=== PATIENT | male | born 1980 | race Caucasian/White ===

== ENCOUNTER 2017-01-12 18:50 | Emergency (ER) | payer OTHER ==
[~2017-01-12] VITALS: Ht 177.8 cm; Wt 79.4 kg
[2017-01-12 19:22] LABS: ABSOLUTE BASOPHIL COUNT 0.1 /CUMM (0.0-0.2); ABSOLUTE EOSINOPHIL COUNT 0.2 /CUMM (0.0-0.7); ABSOLUTE GRANULOCYTE CT 5.2 /CUMM (1.4-6.5); ABSOLUTE LYMPH COUNT 2.6 /CUMM (1.2-3.4); ABSOLUTE MONOCYTE COUNT 0.8 /CUMM (0.10-0.60); BASOPHIL % 0.6 % (0.0-2.0); EOSINOPHIL % 2.2 % (0-5); GRANULOCYTE % 58.6 % (42.2-75.2); MEAN CORPUSCULAR HGB 30.4 PG (27.0-31.0); MEAN CORPUSCULAR HGB CONC 33.5 G/DL (33.0-37.0); MEAN CORPUSCULAR VOLUME 90.6 FL (80.0-94.0); MEAN PLATELET VOLUME 8.2 FL (7.4-10.4); PLATELET COUNT 283 /CUMM (130-400); RBC DISTRIBUTION WIDTH 13.6 % (11.5-14.5); RED BLOOD CELL CT 4.97 /CUMM (4.70-6.10); WHITE BLOOD CELL COUNT 8.8 /CUMM (4.8-10.8)
--- NOTE | 2017-01-12 20:04 | ED CARDIAC/CP/PALPITATIONS ---
History of Present Illness General Chief Complaint: Chest Pain Stated Complaint: CP, L ARM NUMBNESS Source: patient, family Exam Limitations: no limitations Vital Signs & Intake/Output Vital Signs & Intake/Output Vital Signs Date Time Temp Pulse Resp B/P B/P Pulse O2 O2 Flow FiO2 Mean Ox Delivery Rate 01/13 2052 98.1 75 18 149/79 98 Room Air 01/12 1901 97.9 79 16 157/81 98 Room Air Allergies Uncoded Allergies: ENVIRONMENTAL ALLERGIES (Severe, SNEEZING 06/20/12) Triage Note: PT STATES HE IS HAVING CHEST PAIN FOR THE PAST WEEK AND HIS FINGERS ON HIS LEFT ARM ARE NUMB. PT STATES CONSTANT PAIN AND NUMBNESS DENIES DIAPHORESIS OR SOB. Triage Nurses Notes Reviewed? yes HPI: Patient presents with pain in his left shoulder. The past 2 weeks. The pain is constant. Pain increases with abduction of his arm. The pain occasionally radiates into his chest. When it does radiate into his chest lasts anywhere from a few minutes stopped all day. There is no shortness of breath. No diaphoresis. The pain is aching and throbbing in nature. The pain also radiates down his arm and into his fingers. That radiation is constant. There is no known injury. Patient states that he does sleep on his left side time. Past History Travel History Traveled to [place] past 21 day No Medical History Any Pertinent Medical History? see below for history Respiratory: asthma Surgical History Surgical History: non-contributory Psychosocial History What is your primary language Mosotho Tobacco Use: Quit <30 days ago ETOH Use: occasional use Illicit Drug Use: denies illicit drug use Family History Hx Contributory? No Review of Systems Review of Systems Constitutional: Reports: no symptoms. EENTM: Reports: no symptoms. Respiratory: Reports: no symptoms. Cardiovascular: Reports: see HPI, chest pain. GI: Reports: no symptoms. Genitourinary: Reports: no symptoms. Musculoskeletal: Reports: see HPI, joint pain. Skin: Reports: no symptoms. Neurological/Psychological: Reports: no symptoms. Hematologic/Endocrine: Reports: no symptoms. Immunologic/Allergic: Reports: no symptoms. All Other Systems: Reviewed and Negative Physical Exam Physical Exam General Appearance: well developed/nourished, alert, awake, anxious, mild distress Head: atraumatic, normal appearance Eyes: Bilateral: PERRL, EOMI. Ears, Nose, Throat: normal pharynx, normal ENT inspection, hearing grossly normal Neck: normal inspection, supple, full range of motion Respiratory: normal breath sounds, chest non-tender, no respiratory distress, lungs clear Cardiovascular: regular rate/rhythm, normal peripheral pulses Gastrointestinal: normal bowel sounds, soft, non-tender, no organomegaly Back: normal inspection, normal range of motion Extremities: POINT TENDERNESS TO LEFT DELTOID, NO EDEMA, CAP REFIL <2 SEC, NO MOTOR OR SENSORY DEFICITS Neurologic/Psych: no motor/sensory deficits, awake, alert, oriented x 3, normal gait, normal mood/affect Skin: intact, normal color, warm/dry Lymphatic: no anterior cervical rachel Core Measures ACS in differential dx? Yes ASA ordered for poss ACS? No-ACS ruled out Severe Sepsis Present: No Septic Shock Present: No Progress Differential Diagnosis: AMI, costochondritis, musculoskeletal pain, myocarditis, pericarditis, pneumonia, pneumothorax, pulmonary embolism Plan of Care: Orders Procedure Date/time Status TROPONIN LEVEL 01/12 1903 Complete MAGNESIUM 01/12 1903 Complete COMPREHENSIVE METABOLIC PANEL 01/12 1903 Complete CHOLESTEROL 01/12 1903 Complete CBC WITHOUT DIFFERENTIAL 01/12 1903 Complete EKG 01/12 1851 Active Laboratory Tests 01/12/17 1905: Anion Gap 13, Estimated GFR > 60, BUN/Creatinine Ratio 20.0, Glucose 84, Calcium 9.9, Magnesium 1.9, Total Bilirubin 0.7, AST 24, ALT 34, Alkaline Phosphatase 55 , Troponin I < 0.01, Total Protein 8.0, Albumin 4.8, Globulin 3.2, Albumin/ Globulin Ratio 1.5, Cholesterol 167, CBC w Diff NO MAN DIFF REQ, RBC 4.97, MCV 90.6, MCH 30.4, RDW 13.6, MPV 8.2, Gran % 58.6, Lymphocytes % 29.0, Monocytes % 9.6 H, Eosinophils % 2.2, Basophils % 0.6, Absolute Granulocytes 5.2, Absolute Lymphocytes 2.6, Absolute Monocytes 0.8 H, Absolute Eosinophils 0.2, Absolute Basophils 0.1, PUBS MCHC 33.5 Diagnostic Imaging: Viewed by Me: Radiology Read. Discussed w/RAD: Radiology Read. CXR Impression: PATIENT: RAJEEV DAILEY II PRESENT AGE: 36 PATIENT ACCOUNT NO: [id number] : 82 LOCATION: [facility] ORDERING PHYSICIAN: CAMRON BROUSSARD MD SERVICE DATE: 01/12/17 EXAM TYPE: RAD - XRY- PORTABLE CHEST XRAY EXAMINATION: XR PORTABLE CHEST CLINICAL INFORMATION: Chest pain. COMPARISON: None TECHNIQUE: Portable AP portable view of the chest was obtained. 7:50 PM FINDINGS: No significant abnormality is noted involving the heart, lungs, mediastinum, bony thorax or soft tissues. IMPRESSION: Unremarkable examination. DICTATED BY: LEONEL CRUZ MD DATE/TIME DICTATED:01/12/172016 RN ED:ROLA DATE/TIME TRANSCRIBED:01/12/172016 CONFIDENTIAL, DO NOT COPY WITHOUT APPROPRIATE AUTHORIZATION. <Electronically signed in Other Vendor System> SIGNED BY: LEONEL CRUZ MD 01/12/172021 Initial ED EKG: NSR Departure Departure Disposition: HOME OR SELF CARE Condition: Stable Clinical Impression Primary Impression: Deltoid tendinitis of left shoulder Referrals: ROSELIA YANG,ROSIO CUELLAR MD,SERGE Tiwari (PCP/Family) Additional Instructions: RETURNIF SYMPTOMS WORSEN OR FOR ANY CONCERNS Departure Forms: Customer Survey General Discharge Information Critical Care Note Critical Care Note Critical Care Time: non-applicable
--- NOTE | 2017-01-12 20:22 | RADIOLOGY REPORT ---
EXAMINATION: XR PORTABLE CHEST CLINICAL INFORMATION: Chest pain. COMPARISON: None TECHNIQUE: Portable AP portable view of the chest was obtained. 7:50 PM FINDINGS: No significant abnormality is noted involving the heart, lungs, mediastinum, bony thorax or soft tissues. IMPRESSION: Unremarkable examination.
[2017-01-12 20:52] VITALS: BP 149/79
== END 2017-01-12 20:52 ==
LOC: ERH 18:50
PROVIDERS: Emergency Medicine
DX: M77.9 Enthesopathy, unspecified (principal); R20.0 Anesthesia of skin
CPT/HCPCS: 93005; 93010